=== PATIENT | female | born 1985 ===

== ENCOUNTER 2018-07-26 07:37 | Inpatient (IN) ==
[2018-07-26] MEDS ORDERED: OXYTOCIN 30 UNITS/500 ML BAG IV PRN ×2 (07:53→17:52)
[2018-07-26] MEDS ORDERED: LACTATED RINGER'S 1,000 ML IV PRN (07:53)
[2018-07-26] MEDS ORDERED: LACTATED RINGER'S 1,000 ML IV SCH (08:00)
[2018-07-26 08:11] LABS: Hemoglobin 13.3 g/dL (12.0-16.0); Mean Platelet Volume 9.6 fL (7.4-10.4); Platelet Count 148 K/uL (130-400); RDW Coefficient of Variation 13.9 % (11.5-14.5); RDW Standard Deviation 41.5 fL (36.4-46.3); Red Blood Count 4.51 M/uL (4.2-5.4); White Blood Count 9.83 K/uL (4.8-10.8)
[2018-07-26 08:13] LABS: Mean Corpuscular Hgb Conc 35.9 g/dL (32-36)
[2018-07-26] MEDS ORDERED: miSOPROStol 25 MCG TAB PV ONE (08:14)
--- NOTE | 2018-07-26 08:22 | Obstetrical Progress Note ---
Date of Service July 26, 2018 Subjective Admission Note 33 F P0000 at 39 weeks admitted for induction of labor for GDM diet controlled. GBS is negative. FHT Cat 1. Cervix 1-2/50/-3/vertex/soft/posterior/intact. EFW [address] Cytotec 25 mcg vaginally. Will get blood sugar this AM. I discussed plan with patient and her spouse.
--- NOTE | 2018-07-26 09:45 | Obstetrical Progress Note ---
Date of Service July 26, 2018 Subjective Cytotec 25 mcg placed vaginally. FHT Cat 1. Results & Data Vital Signs (Past 12 Hours) Vital Signs Temp Pulse Resp BP 07/26/18 08:45 37.0 C 77 18 125/78
[2018-07-26] MEDS ORDERED: ePHEDrine sulfate 50 MG/ML AMP ONE (15:41)
[2018-07-26] MEDS ORDERED: BUPIVACAINE 0.25% 30 ML VIAL ONE (15:41)
[2018-07-26] MEDS ORDERED: fentaNYL citrate 100 MCG/2 ML VIAL ONE (15:41)
[2018-07-26] MEDS ORDERED: fentaNYL 2MCG/ML ROPIV 1.25MG/ML 100 ML BAG EPI ONE (15:42)
--- NOTE | 2018-07-26 16:28 | Anesthesiology Consultation ---
Date of Service July 26, 2018 History Height/Weight Height: 5 ft 1 in Weight: 87.543 kg Allergies Allergy/AdvReac Type Severity Reaction Status Date / Time Cephalosporins AdvReac Intermediate Rash Verified 07/26/18 08:28 Penicillins AdvReac Intermediate Rash Verified 07/26/18 08:28 Medications Home Medications Medication Instructions Recorded Confirmed Last Taken Yara-D 24 Hour 1 tab PO DAILY 07/26/18 07/26/18 07/26/18 06:30 Calcium 500 With D 1 tab PO DAILY 07/26/18 07/26/18 07/26/18 06:30 [id number] fumarate-FA 1 tab PO DAILY 07/26/18 07/26/18 07/26/18 06:30 [] montelukast 1 tab PO DAILY 07/26/18 07/26/18 07/25/18 22:00 triamcinolone acetonide [Nasacort] See Rx Instructions .ROUTE .COMPLEX 07/26/18 07/26/18 07/25/18 22:00 Active Medications Generic Name Dose Route Start Last Admin Trade Name Freq PRN Reason Stop Dose Admin Lactated Ringer's 1,000 mls @ 999 mls/hr 07/26/18 07:53 07/26/18 16:13 Lr IV 08/25/18 07:52 125 mls/hr .Q1H1M PRN Infusion Pre-Anesthesia NPO Date Last Intake of Fluids: 07/26/18 Time Last Intake of Fluids: 16:25 Date Last Intake of Solids: 07/26/18 Past Medical History Medical History History of tooth extraction Exercise / Class Metabolic Activity II 4-5 Yardwork/Stairs/Walk up hill Past Family History Family History Grandfather (Maternal) Family history of diabetes mellitus Grandmother (Maternal) Family history of diabetes mellitus Past Surgical History Surgical History History of endoscopic sinus surgery Past Anesthesia History No Hx of Anesthesia Complications Social History Smoking Status: Never smoker Hx Alcohol Use: No Hx Substance Use: No substance use type: does not use Physical Exam Vital Signs Last Vital Signs Temp 36.7 C 05/06/19 14:52 Pulse 71 07/26/18 14:53 Resp 20 07/26/18 14:52 BP 135/86 07/26/18 14:53 Testing Laboratory Results 07/26/18 08:02 07/26/18 08:44 POC Glucose 82
--- NOTE | 2018-07-26 16:33 | Obstetrical Progress Note ---
Date of Service July 26, 2018 Physical Exam Genitourinary: Manual OB Exam: + cervical dilation 10 cm, + cervical effacement 100%, + station 0 and + amniotic fluid meconium OB Exam Monitor Tracing: + external FHT monitor used, + external uterine monitor used and + category I will start to push Results & Data Vital Signs (Past 12 Hours) Vital Signs Temp Pulse Resp BP 07/26/18 14:53 71 135/86 07/26/18 14:52 36.7 C 20 07/26/18 12:49 71 120/78 07/26/18 12:47 36.9 C 18 07/26/18 10:47 37.1 C 73 18 122/72 07/26/18 08:45 37.0 C 77 18 125/78
[2018-07-26] MEDS ORDERED: ACETAMINOPHEN 325 MG TAB PO PRN (17:52)
[2018-07-26] MEDS ORDERED: BENZOCAINE 20% AER SPR 82.5 GM CAN EXT PRN (17:52)
[2018-07-26] MEDS ORDERED: HYDROCORTISONE ACETATE 25 MG SUPP PR PRN (17:52)
[2018-07-26] MEDS ORDERED: SUPERCREAM 0.870% 15 GM JAR EXT PRN (17:52)
[2018-07-26] MEDS ORDERED: DIPHTHERIA/TETANUS/PERTUSSIS 0.5 ML SYR/VIAL IM ONE (17:52)
[2018-07-26] MEDS ORDERED: MEASLES, MUMPS & RUBELLA VIRUS VIAL SQ ONE (17:52)
--- NOTE | 2018-07-26 18:01 | Procedure Note ---
Vaginal Delivery Summary Date of Service July 26, 2018 Vaginal Delivery Summary Delivery note live female over intact perineum STACY with Apgars 8/9 weight pending. delayed cord clamping and cord blood obtained. 3VC with very thin caliber and very little Brule's jelly. Placenta delivered intact and examined and will be sent for exam. 1st degree tear repaired with 3/0 Vicryl suture and 1% Lidocaine local. EBL 350 ml. Final sponge, needle and instrument count are correct. Mom and baby stable.
[2018-07-26] MEDS: IBUPROFEN 600 MG TAB PO PRN (20:27)
[2018-07-26] MEDS ORDERED: OXYTOCIN 20 UNITS in LACTATED RINGER'S 1,000 ML IV SCH (20:30)
[2018-07-26 21:30] LABS: Hematocrit (blood only) 29.8 % (37-47); Hemoglobin 10.4 g/dL (12.0-16.0); Mean Corpuscular Hgb Conc 34.9 g/dL (32-36); Mean Corpuscular Volume 82.3 fL (80-100); Mean Platelet Volume 9.8 fL (7.4-10.4); Platelet Count 153 K/uL (130-400); RDW Coefficient of Variation 13.7 % (11.5-14.5); RDW Standard Deviation 41.6 fL (36.4-46.3); Red Blood Count 3.62 M/uL (4.2-5.4); White Blood Count 18.01 K/uL (4.8-10.8)
[2018-07-27] MEDS: IBUPROFEN 600 MG TAB PO PRN ×2 (06:49→17:40)
--- NOTE | 2018-07-27 07:55 | Obstetrical Progress Note ---
Date of Service July 27, 2018 Subjective Patient is seen and examined. She feels well, no complaints. Has not ambulated yet Was dizzy at 1st try Placed watson catheter Tolerating regular diet with out N&V Bleeding is minimal No fever/ chills/ CP/ SOB/ N&V/ Leg pain Breast feeding without problems Vital Signs Temp Pulse Pulse Resp BP BP Pulse Ox 07/27/18 04:15 36.8 C 87 18 107/66 07/27/18 02:00 37 C 83 18 116/76 07/26/18 23:15 37.3 C 91 H 20 113/66 97 07/26/18 21:10 87 128/66 07/26/18 20:41 96 H 16 125/68 07/26/18 20:04 94 H 123/61 07/26/18 07/26/18 07/26/18 Range/Units 20:27 08:44 08:02 WBC 18.01 H 9.83 (4.8-10.8) K/uL RBC 3.62 L 4.51 (4.2-5.4) M/uL Hgb 10.4 L 13.3 (12.0-16.0) g/dL Hct 29.8 L 37.0 (37-47) % MCV 82.3 82.0 (80-100) fL MCH 28.7 29.5 (25-34) pg MCHC 34.9 35.9 (32-36) g/dL RDW Std Deviation 41.6 41.5 (36.4-46.3) fL RDW Coeff of Sonja 13.7 13.9 (11.5-14.5) % Plt Count 153 148 (130-400) K/uL MPV 9.8 9.6 (7.4-10.4) fL POC Glucose 82 (70-99) Am labs are pending PE: General: Alert, orientedx3, NAD Abd: soft, NT, fundus firm, below Umbilicus Perineum intact, Lochia rubra minimal Ext; NT, no edema AP: 33 yo s/p , pph, ppd# 1 VSS Afebrile doing well Am labd pending Start iron bid Continue routine care All questions were answered Results & Data Vital Signs (Past 12 Hours) Vital Signs Temp Pulse Pulse Resp BP BP Pulse Ox 07/27/18 04:15 36.8 C 87 18 107/66 07/27/18 02:00 37 C 83 18 116/76 07/26/18 23:15 37.3 C 91 H 20 113/66 97 07/26/18 21:10 87 128/66 07/26/18 20:41 96 H 16 125/68 07/26/18 20:04 94 H 123/61
[2018-07-27 08:26] LABS: Basophils # (auto) 0.02 K/uL (0-0.2); Basophils % (auto) 0.1 %; Eosinophils # (auto) 0.01 K/uL (0-0.5); Eosinophils % (auto) 0.1 %; Hematocrit (blood only) 28.3 % (37-47); Hemoglobin 9.9 g/dL (12.0-16.0); Immature Granulocytes # (auto) 0.04 K/uL (0.00-0.02); Immature Granulocytes % (auto) 0.3 %; Lymphocytes # (auto) 2.55 K/uL (1.2-3.4); Lymphocytes % (auto) 18.9 %; Mean Corpuscular Volume 82.5 fL (80-100); Mean Platelet Volume 9.2 fL (7.4-10.4); Monocytes # (auto) 0.84 K/uL (0.11-0.59); Monocytes % (auto) 6.2 %; Neutrophils # (auto) 10.05 K/uL (1.4-6.5); Neutrophils % (auto) 74.4 %; Platelet Count 146 K/uL (130-400); RDW Standard Deviation 42.3 fL (36.4-46.3); Red Blood Count 3.43 M/uL (4.2-5.4); White Blood Count 13.51 K/uL (4.8-10.8)
[2018-07-27] MEDS: CALCIUM 600MG + VIT D 400 IU TAB PO SCH (08:41)
[2018-07-27] MEDS: PRENATAL VITAMIN 1 TAB PO SCH (08:41)
[2018-07-27] MEDS: DOCUSATE SODIUM 100 MG CAP PO SCH (08:42)
[2018-07-27] MEDS: FEXOFENADINE 60MG/PSEUDOEPHEDRINE 120MG TAB PO SCH (08:42)
[2018-07-27] MEDS: FERROUS SULFATE 325 MG TAB PO SCH (08:43)
[2018-07-27] MEDS ORDERED: FERROUS SULFATE 325 MG TAB PO SCH (09:00)
[2018-07-27] MEDS ORDERED: NON-FORMULARY MEDICATION (Pnv133-Ferrous Fumarate-Fa [Prenatal] 1 TAB) PO SCH (09:00)
[2018-07-27] MEDS ORDERED: BISACODYL 5 MG TABEC PO SCH (20:00)
[2018-07-27] MEDS ORDERED: MONTELUKAST SODIUM 10 MG TABLET PO SCH (21:00)
[2018-07-28 07:13] LABS: Hematocrit (blood only) 25.6 % (37-47)
[2018-07-28] MEDS: DOCUSATE SODIUM 100 MG CAP PO SCH (08:57)
[2018-07-28] MEDS: FERROUS SULFATE 325 MG TAB PO SCH (08:58)
[2018-07-28] MEDS: PRENATAL VITAMIN 1 TAB PO SCH (08:58)
[2018-07-28] MEDS: CALCIUM 600MG + VIT D 400 IU TAB PO SCH (08:58)
[2018-07-28] MEDS: FEXOFENADINE 60MG/PSEUDOEPHEDRINE 120MG TAB PO SCH (08:59)
[2018-07-28] MEDS ORDERED: BISACODYL 10 MG SUPP PR PRN (09:00)
--- NOTE | 2018-07-28 09:55 | Obstetrical Progress Note ---
Date of Service July 28, 2018 Assessment & Plan (1) normal course: PPd #2 Pt doing well Pt c/o fatigue . Hemoglobin was 9/0 from 9.9, 2hraeago No tachycardia or SOB Plan; Repeat hemoglobin at 17;00hrs will hold disch till stable Hgb Subjective Ambulation: ambulating normally Voiding: no voiding problems Passing Gas:: Yes Diet Tolerance:: regular diet Lochia:: Small Feeding Type:: breast feeding Review of Systems All systems reviewed & are unremarkable except as noted in HPI & below Physical Exam Vital Signs (Past 24 Hours) Last Vital Signs Temp 36.8 C 07/27/18 23:55 Pulse 90 07/27/18 23:55 Resp 18 07/27/18 23:55 BP 112/69 07/27/18 23:55 Pulse Ox 98 07/27/18 15:30 Constitutional WD/WN, vitals as above well developed and well nourished Eyes PERRL, conjunctivae normal, anicteric sclerae Neck trachea midline, no thyromegaly Respiratory normal respiratory effort, lungs clear to auscultation Auscultation: no crackles, no rales and no wheezes Cardiovascular RRR, no murmur, no edema Gastrointestinal (Abdomen) normal bowel sounds, soft, nontender, no hepatosplenomegaly Uterus is below umbilicus Musculoskeletal no cyanosis or clubbing, extremities motor strength 5/5 Skin no rashes, warm and dry Neurologic patellar DTR's 2+ bilat, sensation intact Psychiatric A+Ox3, euthymic affect Genitourinary normal external appearance
[2018-07-28 17:10] LABS: Hematocrit (blood only) 25.3 % (37-47)
== END 2018-07-28 19:20 | disposition home or self-care (01) | DRG 807 ==
LOC: MERGE 07:37 → 4S1 07:37 → 4S2 23:53
DX: O77.0 Labor and delivery complicated by meconium in amniotic fluid; Z37.0 Single live birth; O24.420 Gestational diabetes mellitus in childbirth, diet controlled; O70.0 First degree perineal laceration during delivery; Z3A.39 39 weeks gestation of pregnancy